=== PATIENT | male | born 1980 ===

== ENCOUNTER 2024-05-13 08:30 | Outpatient (REF) | payer BC, SELFPAY | END 2024-05-13 08:31 | disposition home or self-care (01) | LOC: HO.SH 08:30 | PROVIDERS: Visit Provider Pediatrics | DX: Z01.118 Encounter for examination of ears and hearing with other abnormal findings (principal); H93.293 Other abnormal auditory perceptions, bilateral | CPT/HCPCS: 92557; 92700 ==